=== PATIENT | female | born 1965 | race Caucasian/White ===

== ENCOUNTER 2018-07-25 13:00 | Inpatient (IN) | payer MEDICAID ==
[~2018-07-25] VITALS: Ht 162.6 cm; Wt 66.7 kg
[2018-07-25] MEDS ORDERED: GLYCOPYRROLATE 0.2 MG/ML 2ML VIAL ONE (13:30)
[2018-07-25] MEDS ORDERED: FENTANYL CITRATE/PF 50MCG/ML 2ML VIAL ONE (13:30)
[2018-07-25] MEDS ORDERED: PROPOFOL 10MG/ML 100ML 200 ML IV ONE (13:30)
[2018-07-25] MEDS ORDERED: NORMAL SALINE 0.9% 10 ML SYR ONE (13:39)
[2018-07-25] MEDS ORDERED: GENTAMICIN SULF 40MG/ML 2ML VIAL ONE (13:39)
[2018-07-25] MEDS ORDERED: LIDOCAINE HCL/EPINEPHRINE 1%-EPI 1:100,000 20 ML VIAL ONE (13:39)
[2018-07-25] MEDS ORDERED: BACITRACIN 50,000 UNITS/VIAL ONE (13:39)
[2018-07-25] MEDS ORDERED: IBUP-2271 PO (15:44)
[2018-07-25] MEDS ORDERED: LISI-604 PO (15:44)
[2018-07-25] MEDS ORDERED: ONDANSETRON HCL 4MG/2ML INJ IV PRN ×2 (16:00→16:30)
[2018-07-25] MEDS ORDERED: FENTANYL CITRATE/PF 50MCG/ML 2ML VIAL IV PRN (16:00)
[2018-07-25 16:30] VITALS: BP 158/89
[2018-07-25] MEDS ORDERED: ACETAMINOPHEN 650MG/20.3ML UDC GT PRN (16:30)
[2018-07-25] MEDS ORDERED: ACETAMINOPHEN 650MG SUPP PR PRN (16:30)
[2018-07-25] MEDS ORDERED: ACETAMINOPHEN 325MG TABLET PO PRN (16:30)
[2018-07-25 18:00] VITALS: BP 158/89
[2018-07-25] MEDS: HYDROCODONE/ACETAMINOPHEN 5/325MG TABLET PO PRN (19:48)
[2018-07-25 20:00] VITALS: BP 177/86
[2018-07-25 21:01] LABS: CLARITY URINE CLEAR (CLEAR); COLOR URINE ORANGE (YELLOW); KETONES URINE TRACE (NEGATIVE); LEUKOCYTE ESTERASE URINE TRACE (NEGATIVE); NITRITE URINE NEGATIVE (NEGATIVE); OCCULT BLOOD URINE 3+ (NEGATIVE); PH URINE 8.5 (4.5-8.0); PROTEIN URINE 1+ (NEGATIVE); SPECIFIC GRAVITY URINE 1.011 (1.005-1.030)
[2018-07-25 21:16] LABS: *AMPHETAMINES SCREEN URINE NEGATIVE (NEGATIVE); *BARBITURATES SCREEN URINE NEGATIVE (NEGATIVE); *BENZODIAZEPINES SCREEN URINE NEGATIVE (NEGATIVE); *COCAINE SCREEN URINE NEGATIVE (NEGATIVE)
[2018-07-25 21:17] LABS: CANNABINOID URINE SCREEN NEGATIVE (NEGATIVE); METHADONE URINE SCREEN NEGATIVE (NEGATIVE); OPIATES URINE SCREEN PRESUMTIVE POSITIVE (NEGATIVE); PHENCYCLIDINE URINE SCREEN NEGATIVE (NEGATIVE)
[2018-07-25 22:00] VITALS: BP 161/88
[2018-07-26] VITALS (12 sets, daily range): BP systolic 122–170; BP diastolic 71–88
[2018-07-26 01:44] LABS: CREATINE KINASE 21 IU/L (26-192)
[2018-07-26 01:45] LABS: CREATINE KINASE MB FRACTION < 1.0 ng/mL (0.5-3.6)
[2018-07-26] MEDS: HYDROCODONE/ACETAMINOPHEN 5/325MG TABLET PO PRN ×2 (05:22→22:13)
[2018-07-26 06:52] LABS: CHLORIDE 101 mEq/L (98-107)
[2018-07-26 07:02] LABS: BASOPHILS % 0.1 % (0.0-2.0); HEMATOCRIT. 39.7 % (36.0-48.0); HEMOGLOBIN. 13.6 g/dL (12.0-16.0); LYMPHOCYTES % 15.4 % (20.0-50.0); MEAN CORPUSCULAR HEMOGLOBIN 28.5 pg (28.0-32.0); MEAN CORPUSCULAR VOLUME 83.4 fL (81.0-99.0); MEAN PLATELET VOLUME 8.9 fl (7.4-10.4); MONOCYTES % 6.3 % (2.0-8.0); NEUTROPHILS % 78.2 % (40.0-76.0); PLATELET 221 x1000/uL (130-400); RED BLOOD CELL COUNT 4.76 mill/uL (4.2-5.4); RED CELL DISTRIBUTION WIDTH 13.9 % (11.6-14.6)
[2018-07-26 07:07] LABS: LDL CHOLESTEROL 125 mg/dL (5-100)
[2018-07-26 07:08] LABS: CREATINE KINASE 17 IU/L (26-192); CREATINE KINASE MB FRACTION < 1.0 ng/mL (0.5-3.6); HDL CHOLESTEROL 12 mg/dL (40-59)
[2018-07-26 07:09] LABS: T4 FREE 1.56 ng/dL (0.76-1.46)
[2018-07-26] MEDS ORDERED: CLONIDINE 0.1MG TABLET PO PRN (07:15)
[2018-07-26] MEDS ORDERED: NITROGLYCERIN 0.4MG TABLET SL SL PRN (07:15)
[2018-07-26] MEDS: MORPHINE SULFATE 4 MG/ML CPJ (NOT FOR IM USE) IV PRN ×2 (07:27→20:27)
[2018-07-26] MEDS ORDERED: IPRATROPIUM/ALBUTEROL 0.5-3(2.5)MG/3ML NEB HHN PRN (08:00)
[2018-07-26] MEDS ORDERED: LISINOPRIL 20MG TABLET PO SCH (09:00)
[2018-07-26 16:13] LABS: CREATINE KINASE 14 IU/L (26-192)
[2018-07-26 16:14] LABS: CREATINE KINASE MB FRACTION < 1.0 ng/mL (0.5-3.6)
[2018-07-26 17:24] LABS: HEPATITIS B SURFACE ANTIGEN NEGATIVE
[2018-07-26 17:52] LABS: HEPATITIS B CORE AB IGM NEGATIVE
[2018-07-26 17:53] LABS: HEPATITIS A AB IGM NEGATIVE (NEGATIVE)
[2018-07-26] MEDS: LISINOPRIL 20MG TABLET PO SCH (20:26)
[2018-07-27] VITALS (10 sets, daily range): BP systolic 121–145; BP diastolic 68–87
[2018-07-27] MEDS: MORPHINE SULFATE 4 MG/ML CPJ (NOT FOR IM USE) IV PRN ×2 (02:06→10:03)
[2018-07-27 07:15] LABS: BASOPHILS % 0.3 % (0.0-2.0); HEMATOCRIT. 38.6 % (36.0-48.0); HEMOGLOBIN. 13.2 g/dL (12.0-16.0); LYMPHOCYTES % 30.4 % (20.0-50.0); MEAN CORPUSCULAR HEMOGLOBIN 28.9 pg (28.0-32.0); MEAN CORPUSCULAR VOLUME 84.5 fL (81.0-99.0); MEAN PLATELET VOLUME 8.5 fl (7.4-10.4); MONOCYTES % 10.4 % (2.0-8.0); NEUTROPHILS % 57.9 % (40.0-76.0); PLATELET 275 x1000/uL (130-400); RED BLOOD CELL COUNT 4.57 mill/uL (4.2-5.4); RED CELL DISTRIBUTION WIDTH 14.4 % (11.6-14.6)
[2018-07-27] MEDS: LISINOPRIL 20MG TABLET PO SCH ×2 (08:06→20:56)
[2018-07-27] MEDS: HYDROCODONE/ACETAMINOPHEN 5/325MG TABLET PO PRN ×3 (08:08→22:10)
[2018-07-27 08:17] LABS: CHLORIDE 104 mEq/L (98-107)
[2018-07-27 08:40] LABS: PHOSPHORUS 3.8 mg/dL (2.5-4.9)
[2018-07-27] MEDS ORDERED: MORPHINE SULFATE 4 MG/ML CPJ (NOT FOR IM USE) IV PRN (15:15)
[2018-07-27] MEDS: PANTOPRAZOLE 40MG DR TABLET PO SCH (17:44)
[2018-07-28 00:05] VITALS: BP 121/76
[2018-07-28] MEDS: HYDROCODONE/ACETAMINOPHEN 5/325MG TABLET PO PRN (02:58)
[2018-07-28 04:00] VITALS: BP 115/61
[2018-07-28 07:35] LABS: BASOPHILS % 0.5 % (0.0-2.0); HEMATOCRIT. 40.8 % (36.0-48.0); HEMOGLOBIN. 14.1 g/dL (12.0-16.0); LYMPHOCYTES % 31.9 % (20.0-50.0); MEAN CORPUSCULAR HEMOGLOBIN 29.3 pg (28.0-32.0); MEAN CORPUSCULAR VOLUME 84.8 fL (81.0-99.0); MEAN PLATELET VOLUME 8.2 fl (7.4-10.4); MONOCYTES % 8.6 % (2.0-8.0); PLATELET 342 x1000/uL (130-400); RED BLOOD CELL COUNT 4.81 mill/uL (4.2-5.4); RED CELL DISTRIBUTION WIDTH 14.3 % (11.6-14.6)
[2018-07-28 07:55] LABS: CHLORIDE 103 mEq/L (98-107)
[2018-07-28 08:00] VITALS: BP 111/61
[2018-07-28 08:04] LABS: PHOSPHORUS 4.4 mg/dL (2.5-4.9)
[2018-07-28] MEDS: LISINOPRIL 20MG TABLET PO SCH (09:00)
[2018-07-28 12:00] VITALS: BP 114/69
[2018-07-28] MEDS ORDERED: BACITRACIN 50,000 UNITS/VIAL ONE (12:12)
[2018-07-28] MEDS ORDERED: BUPIVACAINE HCL/PF 0.5% (5MG/ML) 10ML ONE (12:12)
[2018-07-28] MEDS ORDERED: NORMAL SALINE 0.9% 10 ML SYR ONE (12:12)
[2018-07-28] MEDS ORDERED: LIDOCAINE HCL 1% 10 MG/ML 10ML VIAL ONE (12:13)
[2018-07-28] MEDS ORDERED: SKIN ADHESIVE 0.7 GM EA TOP ONE (12:13)
[2018-07-28] MEDS ORDERED: TRAMADOL 50MG TABLET PO PRN (15:45)
[2018-07-28] MEDS: PANTOPRAZOLE 40MG DR TABLET PO SCH (15:55)
[2018-07-28 16:00] VITALS: BP 108/73
[2018-07-28] MEDS ORDERED: LISI-604 PO (16:04)
[2018-07-28] MEDS ORDERED: PANT40TA4 PO (16:04)
[2018-07-28] MEDS ORDERED: TRAM50TA3 PO (16:04)
[2018-07-28 17:00] VITALS: BP 108/73
== END 2018-07-28 19:30 | disposition home or self-care (01) | DRG 463 ==
LOC: OR 13:00 → 5EST 13:25 → EDSTATUS 13:26 → 5EST 07-27 11:41 → 7WST 07-27 16:30
PROVIDERS: ADMIT Internal Medicine; ATTEND Internal Medicine
PROC: 0T768DZ Dilation of Right Ureter with Intraluminal Device, Via Natural or Artificial Opening Endoscopic (ICD-10-PCS; 2018-07-25)
PROC: 0TF68ZZ Fragmentation in Right Ureter, Via Natural or Artificial Opening Endoscopic (ICD-10-PCS; principal; 2018-07-25 13:30)
DX: N13.6 Pyonephrosis (principal); E43 Unspecified severe protein-calorie malnutrition; I13.10 Hypertensive heart and chronic kidney disease without heart failure, with stage 1 through stage 4 chronic kidney disease, or unspecified chronic kidney disease; I45.81 Long QT syndrome; K80.20 Calculus of gallbladder without cholecystitis without obstruction; R00.1 Bradycardia, unspecified; K76.0 Fatty (change of) liver, not elsewhere classified; N18.9 Chronic kidney disease, unspecified; E78.5 Hyperlipidemia, unspecified; F41.9 Anxiety disorder, unspecified; Z68.25 Body mass index [BMI] 25.0-25.9, adult; Z79.899 Other long term (current) drug therapy
CPT/HCPCS: 36415; 71045; 74018; 74181; 76700; 78227; 80048; 80053; 80061; 80076; 80305; 81003; 82550; 82553; 83690; 83735; 84100; 84439; 84443; 84481; 84484; 85025; 86705; 86709; 86803; 87340; 93005; 93306; 93970; 94640; A4216; A9537; C2617; J1580; J2270; J2405; J2704; J3010; J3490; J7120; J7620